=== PATIENT | male | born 1975 | race Asian ===

== ENCOUNTER 2017-08-17 13:05 | Outpatient (CLI) | payer OTHER | END 2017-08-17 13:06 | disposition home or self-care (01) | LOC: DI 13:05 | PROVIDERS: ATTEND General Practice | DX: R93.8 Abnormal findings on diagnostic imaging of other specified body structures (principal) | CPT/HCPCS: 93306 ==

== ENCOUNTER 2017-08-30 15:06 | Outpatient (CLI) | payer OTHER | END 2017-08-30 15:07 | disposition home or self-care (01) | LOC: SC 15:06 | PROVIDERS: ATTEND Internal Medicine Pulmonary Disease | DX: G47.33 Obstructive sleep apnea (adult) (pediatric) (principal) | CPT/HCPCS: 99203; 99212 ==

== ENCOUNTER 2019-02-27 09:07 | Outpatient (CLI) | payer OTHER ==
[2019-02-27 10:24] VITALS: BP 130/80
--- NOTE | 2019-02-27 10:24 | SLEEP CARE CONSULTATION ---
Information from patient questionnaire entered by Polly Buchanan. I have reviewed and concur with the information entered by Polly Buchanan. This document represents the service I personally performed and the decisions made by me, Rakel Yeung, RN, MSN, [employer]. History of Present Illness Previous diagnosis: Severe, Obstructive Sleep Apnea-Hypopnea Syndrome AHI: 46.5 Reason for follow up: annual Equipment type: CPAP Equipment obtained from: [employer] (having difficulty getting supplies) Mask style: Full face Mask brand: Resmed (AirFit F20) Backup mask available: No (Keep current mask when replaced for a spare) Last cushion change: 4 months ago Prior sleep studies: Yes CPAP Compliance Data - Data Reviewed with Patient Average duration of nightly device use: 6.75 Compliance rate %: 98 (180 days) Current pressure setting (cmH2O): 5-12 Average residual AHI: 3.0 Average large leak: Zero Subjective Missed days of use due to: reports: travel (forgot ) Patient concerns: reports: mask discomfort (from old mask). denies: aerophagia, air blowing in eyes, mask leak noise, condensation in mask/hose, nasal congestion, dry mouth, nose, throat, epistaxis Observed to snore while using device: Yes (intermittently ) Current pressure setting perceived as: comfortable On therapy, patient: reports: sleeping better, awakening more refreshed, being more awake and alert during the day, more rested overall. denies: drowsiness while driving Initial [place] Sleepiness Scale score: 13 Current [place] Sleepiness Scale score: 17 (extra hours at work recently) Allergies and Home Medications Known drug allergies: No Home medication list reviewed: Yes Allergy and home medication list: Hydrochlorothiazide 25mg tab one daily Ranitidine 150mg tab one daily meloxicam 7.5 mg prn Lipitor 20mg one daily Review of Systems Review of systems same as previous: Yes Physical Exam Blood Pressure: 130/80 Cuff size: long Heart Rate: 64 O2 Saturation: 98 Height: 5 ft 9.25 in Weight: 231 lb 12.8 oz Body Mass Index: 34.0 BMI Classification: Obesity Class 1 Impression and Plan 1. Obstructive Sleep Apnea-Hypopnea Syndrome, severe, with good treatment compliance and good apnea control. On CPAP therapy, the patient has better sleep quality and is more rested overall. For supply concerns, I informed him that [facility] is no longer in contract with his insurance so I will have my claims coordinator inform him of his options. Since he is a [employer] company would be best. I will make a DWO prescription. He was also shown how to adjust humidity and heated hose on a sample device for upcoming winter weather. Res Med hand out given. To reduce snoring, I will increase his autoCPAP range [id number]. He is to contact me if the pressure does not resolve snore or is uncomfortable so can be adjusted. He has also gained weight which can apnea risk , CPAP pressure requirements and overall health risks. Thus he is advised to lose weight. He is to be aware of portion control and health content ( whole foods ) and reducing refined foods. If needs further assistance, to contact his PCP for a diet consult. The [place] to reduce health risks is to reduce central obesity. For his concerns about exercise guidelines due to enlarged heart as he works out in a gym, he is to contact his plant operator helper. Patient agreed with plan. Patient's apnea severity and rationale for treatment to reduce apnea, improve sleep quality and reduce cardiovascular and cerebrovascular events was reviewed. I also reviewed the benefit of consistent device use of CPAP for hypertension. * * Change CPAP pressure to 10-14 cmH2O * Notify me if snoring with mask or feeling that the pressure is too much or too little * Transfer to new DME. * Attempt to lose weight * Contact plant operator helper re exercise guidelines. * Return for follow up in 1 year, or sooner if concerns arise I spent 100% of this 35 minute visit face to face with the patient with greater than 50% of this was spent time counseling the patient and coordination of care.
== END 2019-02-27 09:08 | disposition home or self-care (01) ==
LOC: SC 09:07
PROVIDERS: ATTEND Nurse Practitioner Family
DX: G47.33 Obstructive sleep apnea (adult) (pediatric) (principal); E66.9 Obesity, unspecified; Z68.34 Body mass index [BMI] 34.0-34.9, adult
CPT/HCPCS: 99212; 99214

== ENCOUNTER 2020-01-25 14:48 | Outpatient (CLI) | payer OTHER ==
--- NOTE | 2020-01-25 15:20 | SLEEP CARE CONSULTATION ---
Information from patient questionnaire entered by Riccardo Cheema. I have reviewed and concur with the information entered by Riccardo Cheema. This document represents the service I personally performed and the decisions made by , Selene Montes ARNP. History of Present Illness Service Date and Time: 01/25/2020 1448 Previous diagnosis: Severe, Obstructive Sleep Apnea-Hypopnea Syndrome AHI: 46.5 Reason for follow up: annual (Last seen 02/2019 - machine or pressure issues) Equipment type: CPAP Equipment obtained from: [employer] (getting supplies as needed) Mask style: Full face Mask brand: Resmed Backup mask available: Yes (old mask) Last cushion change: 2 weeks ago Prior sleep studies: Yes Year and Where: 2015 [facility] Sleep Lab Type of Sleep Study: Polysomnography HPI additional information: MAEVE DIMAS was diagnosed to have severe, AHI 46.5, obstructive sleep apnea- hypopnea syndrome and returned today for CPAP therapy last seen 2018, patient has machine or pressure issues follow-up. Sleep Study - Results Prior sleep studies: Yes CPAP Compliance Data - Data Reviewed with Patient Average duration of nightly device use: 7 h 34 min Compliance rate %: 99 Current pressure setting (cmH2O): 5-12 Average residual AHI: 2.6 Central apnea: 0.1 Obstructive apnea: 1.6 Subjective Missed days of use due to: reports: other (power outage) Patient concerns: reports: air blowing in eyes (due to wearing of mask, changing mask helps), other (would like to have a battery back up for his machine). denies: aerophagia, mask discomfort, mask leak noise, condensation in mask/hose, nasal congestion, dry mouth, nose, throat, epistaxis Observed to snore while using device: No Current pressure setting perceived as: too low On therapy, patient: reports: sleeping better, awakening more refreshed, being more awake and alert during the day, more rested overall. denies: drowsiness while driving Initial [place] Sleepiness Scale score: 13 (in 2018) Current [place] Sleepiness Scale score: 14 Allergies and Home Medications Known drug allergies: No (NKDA) Home medication list reviewed: Yes Allergy and home medication list: HCTZ Atorvastatin Prilosec Ibuprofen, as needed fish oil multivitamins Review of Systems Review of systems same as previous: Yes (no changes) Physical Exam Heart Rate: 68 O2 Saturation: 97 Height: 5 ft 9.25 in Weight: 238 lb Body Mass Index: 34.9 BMI Classification: Obese Impression and Plan 1. Obstructive Sleep Apnea-Hypopnea Syndrome, severe, with good treatment compliance and good apnea control. On CPAP therapy, the patient has better sleep quality and is more rested overall. He was wondering about when he would be eligible for a machine upgrade. His last machine update was in 2018 so he will be eligible in about 3 years unless his machine malfunctions or stops working. He does not feel like the pressure is enough and recently has had more headaches in the morning. I will increase his pressure to 10-14 cm H2O and have him follow up in a month or so to see if these issue have improved/resolve. He voiced understanding. Patient's apnea severity and rationale for treatment to reduce apnea, improve sleep quality and reduce cardiovascular and cerebrovascular events was reviewed. I also reviewed the benefit of consistent device use of CPAP for his hypertension. * Continue auto CPAP pressure at 10-14 cmH2O * Notify me if snoring with mask or feeling that the pressure is too much or too little * Attempt to lose weight * Call this office if any problems using CPAP * Return for follow up in 1-2 months, or sooner if concerns arise Counseling Topics: Weight loss health impact Visit Type: In Office Time Spent with Patient (minutes): 17 Provider Statement: I spent 100% of the Face to Face Visit with the patient with greater than 50% spent counseling the patient and coordination of care.
== END 2020-01-25 14:49 | disposition home or self-care (01) ==
LOC: SC 14:48
PROVIDERS: ATTEND Nurse Practitioner Family
DX: G47.33 Obstructive sleep apnea (adult) (pediatric) (principal); E66.9 Obesity, unspecified; Z68.34 Body mass index [BMI] 34.0-34.9, adult
CPT/HCPCS: 99212; 99213

== ENCOUNTER 2020-04-04 10:28 | Outpatient (CLI) | payer OTHER ==
--- NOTE | 2020-04-04 10:56 | SLEEP CARE CONSULTATION ---
Information from patient questionnaire entered by Ploly Buchanan. I have reviewed and concur with the information entered by Polly Buchanan. This document represents the service I personally performed and the decisions made by , Selene Montes ARNP. History of Present Illness Service Date and Time: 04/04/2020 1028 Previous diagnosis: Severe, Obstructive Sleep Apnea-Hypopnea Syndrome AHI: 46.5 (in 2016) Reason for follow up: other (2 month with pressure change) Equipment type: CPAP Equipment obtained from: [employer] (getting supplies as needed) Mask style: Full face Mask brand: [employer] Backup mask available: Yes (old mask) Last cushion change: 1 week ago Prior sleep studies: Yes Year and Where: 2016 [facility] Sleep Lab Type of Sleep Study: Polysomnography HPI additional information: MAEVE DIMAS was diagnosed to have severe, AHI 46.5, obstructive sleep apnea- hypopnea syndrome and returned today for CPAP therapy 2 month pressure change follow-up. CPAP Compliance Data - Data Reviewed with Patient Average duration of nightly device use: 7 hr 28 min Compliance rate %: 100 (60 days) Current pressure setting (cmH2O): 10-14 Average residual AHI: 2.3 Subjective Missed days of use due to: reports: travel Patient concerns: reports: mask discomfort (it is okay but may be too small; will call to try a large instead of medium). denies: aerophagia, air blowing in eyes, mask leak noise, condensation in mask/hose, nasal congestion, dry mouth, nose, throat, epistaxis, other Observed to snore while using device: No Current pressure setting perceived as: comfortable On therapy, patient: reports: sleeping better, awakening more refreshed, being more awake and alert during the day, more rested overall. denies: drowsiness while driving Initial [place] Sleepiness Scale score: 13 (in 2018) Current [place] Sleepiness Scale score: 13 Allergies and Home Medications Drug allergies reviewed: Yes (NKDA) Home medication list reviewed: Yes (no changes) Review of Systems Review of systems same as previous: Yes (no changes) Physical Exam Heart Rate: 65 O2 Saturation: 98 Height: 5 ft 9.25 in Weight: 226 lb Body Mass Index: 33.1 BMI Classification: Obese Impression and Plan 1. Obstructive Sleep Apnea-Hypopnea Syndrome, severe, with good treatment compliance and good apnea control. On CPAP therapy, the patient has better sleep quality and is more rested overall. He feels the mask may not be fitting well, that it may be a little small. I advised him to request the next larger size of his full face mask from the DME to see if that fits better. He voiced understanding and agreement to call them with this request. He is going to retire from duty and his insurance may be changing. I advised that he call and update us with this information once this happens and he voiced agreement. Patient's apnea severity and rationale for treatment to reduce apnea, improve sleep quality and reduce cardiovascular and cerebrovascular events was tierney carr. I also reviewed the benefit of consistent device use of CPAP for hypertension. * Continue autoCPAP pressure at 10-14 cmH2O * Notify me if snoring with mask or feeling that the pressure is too much or too little * Attempt to lose weight * Call this office if any problems using CPAP * Return for follow up in 1 year, or sooner if concerns arise Counseling Topics: Spare mask, Weight loss health impact Visit Type: In Office Time Spent with Patient (minutes): 17 Provider Statement: I spent 100% of the Face to Face Visit with the patient with greater than 50% spent counseling the patient and coordination of care.
== END 2020-04-04 10:29 | disposition home or self-care (01) ==
LOC: SC 10:28
PROVIDERS: ATTEND Nurse Practitioner Family
DX: G47.33 Obstructive sleep apnea (adult) (pediatric) (principal); E66.9 Obesity, unspecified; Z68.33 Body mass index [BMI] 33.0-33.9, adult
CPT/HCPCS: 99212; 99213

== ENCOUNTER 2022-04-17 14:17 | Outpatient (CLI) | payer OTHER ==
--- NOTE | 2022-04-17 15:05 | SLEEP CARE CONSULTATION ---
Information from patient questionnaire entered by Lora Frazier MA. I have reviewed and concur with the information entered by Lora Frazier MA. This document represents the service I personally performed and the decisions made by , Selene Montes ARNP. History of Present Illness Service Date and Time: 04/17/2022 1417 Previous diagnosis: Severe, Obstructive Sleep Apnea-Hypopnea Syndrome AHI: 46.5 (in 2015) Reason for follow up: annual (last seen 03/2020) Equipment type: CPAP (Resmed Airsense 10) Equipment obtained from: [employer] (getting supplies as needed) Mask style: Full face Mask brand: Resmed (Airfit) Backup mask available: Yes (other mask) Last cushion change: 4-5 weeks Prior sleep studies: Yes Year and Where: 2015 - [facility] Sleep Lab Type of Sleep Study: Polysomnography HPI additional information: MAEVE DIMAS was diagnosed to have severe, AHI 46.5, obstructive sleep apnea- hypopnea syndrome and returned today for CPAP therapy annual follow-up. Sleep Study - Results Type of Sleep Study: Polysomnography Prior sleep studies: Yes Year and Where: 2015 - [facility] Sleep Lab CPAP Compliance Data - Data Reviewed with Patient Average duration of nightly device use: 6 hours 29 minutes Compliance rate %: 99 (179/180 days used) Current pressure setting (cmH2O): 10-14 Average residual AHI: 2.3 Central apnea: 0.1 Obstructive apnea: 1.2 Average large leak: 1.1 lpm Subjective Missed days of use due to: reports: travel Patient concerns: denies: aerophagia, mask discomfort, air blowing in eyes, mask leak noise, condensation in mask/hose, nasal congestion, dry mouth, nose, throat, epistaxis Observed to snore while using device: Yes (occasional) Current pressure setting perceived as: comfortable On therapy, patient: reports: sleeping better, awakening more refreshed, being more awake and alert during the day, more rested overall. denies: drowsiness while driving Initial [place] Sleepiness Scale score: 13 (in 2018) Current [place] Sleepiness Scale score: 9 Allergies and Home Medications Drug allergies reviewed: Yes (NKDA) Home medication list reviewed: Yes (no changes) Review of Systems Review of systems same as previous: Yes (no changes) Physical Exam Vital signs obtained and entered by: RAYMOND WHITFIELD Blood Pressure: 140/92 (PT IS C/O HEADACHE. STATES HE HAS NOT TAKEN B/P M EDICATION YET.) Cuff size: regular Heart Rate: 76 O2 Saturation: 96 Height: 5 ft 9.25 in Weight: 238 lb 2 oz Body Mass Index: 34.9 BMI Classification: Obese Impression and Plan 1. Obstructive Sleep Apnea-Hypopnea Syndrome, severe, with good treatment compliance and good apnea control. On CPAP therapy, the patient has better sleep quality and is more rested overall. Patient has significant improvement of their sleep apnea and are satisfied with current CPAP therapy. Patient denies problems with oral dryness, nasal congestion, epistaxis, skin irritation or aerophagia. Patient's apnea severity and rationale for treatment to reduce apnea, improve sleep quality and reduce cardiovascular and cerebrovascular events was reviewed. I also reviewed the benefit of consistent device use of CPAP for hypertension. 2. Obesity, unspecified. Currently patients BMI is 34.9. Obesity increases the risk of apnea, CPAP pressure requirements and overall health risks especially cardiovascular and diabetes. Thus patient is advised to continue to try to lose weight. * Continue auto CPAP pressure at 10-14 cmH2O * Update supplies * Notify me if snoring with mask or feeling that the pressure is too much or too little * Attempt to lose weight * Call this office if any problems using CPAP * Return for follow up in 1 year, or sooner if concerns arise Counseling Topics: Weight loss health impact Visit Type: In Office Time Spent with Patient (minutes): 20 Provider Statement: I spent 100% of the Face to Face Visit with the patient with greater than 50% spent counseling the patient and coordination of care.
[2022-04-17 15:11] VITALS: BP 140/92
== END 2022-04-17 14:18 | disposition home or self-care (01) ==
LOC: SC 14:17
PROVIDERS: ATTEND Nurse Practitioner Family
DX: G47.33 Obstructive sleep apnea (adult) (pediatric) (principal); E66.9 Obesity, unspecified; Z68.34 Body mass index [BMI] 34.0-34.9, adult
CPT/HCPCS: 99212; 99213

== ENCOUNTER 2023-07-07 08:52 | Outpatient (CLI) | payer OTHER ==
--- NOTE | 2023-07-07 09:23 | Sleep Patient Instructions ---
Sleep Center Visit Summary - Patient Visit Information Reason for Visit: Annual Followup - Patient Instructions Additional Instructions: You will continue with CPAP therapy with pressure set at 10-14 cmH2O. A supply prescription will be updated with your DME. I have added to update your CPAP and for a mask refitting. Please call once you have your new CPAP to set up compliance follow up. We encourage you to continue to try to lose weight. Please follow up with the sleep care office one month after obtaining new CPAP. - Clinic Information Contact: [facility] [address] [place] [address] [email or web address] T: [phone]
--- NOTE | 2023-07-07 09:26 | SLEEP CARE CONSULTATION ---
Information from patient questionnaire entered by Nazanin Joshi. I have reviewed and concur with the information entered by Nazanin Joshi. This document represents the service I personally performed and the decisions made by me, Selene Montes ARNP. History of Present Illness Service Date and Time: 07/07/2023 0852 Previous diagnosis: Severe, Obstructive Sleep Apnea-Hypopnea Syndrome AHI: 46.5 (in 2015) Reason for follow up: annual (LAST SEEN 03/2022) Equipment type: CPAP (Resmed Airsense 10; s/u 12/2017, MACHINE NEEDED) Equipment obtained from: Other ([employer] [facility]; getting supplies) Mask style: Full face Mask brand: Resmed (AirTouch F20, medium cushion) Backup mask available: Yes Last cushion change: couple weeks Prior sleep studies: Yes Year and Where: [address] [place] [address] Sleep Lab Type of Sleep Study: Polysomnography HPI additional information: MAEVE DIMAS was diagnosed to have severe, AHI 46.5, obstructive sleep apnea- hypopnea syndrome and returned today for CPAP therapy annual follow-up. Sleep Study - Results Type of Sleep Study: Polysomnography Prior sleep studies: Yes Year and Where: [address] [place] [address] Sleep Lab CPAP Compliance Data - Data Reviewed with Patient Average duration of nightly device use: 6 hours 26 minutes Compliance rate %: 99 (01/08/23-07/06/23; 180/180 days used) Current pressure setting (cmH2O): 10-14 Average residual AHI: 2 Central apnea: 0 Obstructive apnea: 1 Hypopnea: 1 Average large leak: 2.1 L/min Subjective Missed days of use due to: reports: travel Patient concerns: reports: air blowing in eyes. denies: aerophagia, mask discomfort, mask leak noise, condensation in mask/hose, nasal congestion, dry mouth, nose, throat, epistaxis Observed to snore while using device: Yes (random, not every night) Current pressure setting perceived as: comfortable On therapy, patient: reports: sleeping better, awakening more refreshed, being more awake and alert during the day, more rested overall. denies: drowsiness while driving Initial [place] Sleepiness Scale score: 13 (in 2018) Current [place] Sleepiness Scale score: 12 (07/07/23) Allergies and Home Medications Known drug allergies: No Drug allergies reviewed: Yes Home medication list reviewed: Yes (no changes) Allergy and home medication list: Allergies No Known Drug Allergies Allergy (Verified 07/05/23 09:38) Review of Systems Review of systems same as previous: Yes (NO CHANGE) Physical Exam Vital signs obtained and entered by: NAZANIN Tavares MA Blood Pressure: 165/104 (RIGHT ARM) Cuff size: regular Heart Rate: 66 O2 Saturation: 99 Height: 5 ft 9 in Weight: 240 lb 9.6 oz Body Mass Index: 35.5 BMI Classification: Obese Impression and Plan 1. Obstructive Sleep Apnea-Hypopnea Syndrome, severe, with good treatment compliance and good apnea control. On CPAP therapy, the patient has better sleep quality and is more rested overall. His ResMed 10 was last updated in 2018. The patients CPAP is over 5 years old and of reasonable use. Thus, the CPAP will be updated. He would also like to try a different full face mask. A DWO prescription will be made for new CPAP and a mask refitting for full face mask. Compliance guidelines for new device and follow up discussed. Patient's apnea se verity and rationale for treatment to reduce apnea, improve sleep quality and reduce cardiovascular and cerebrovascular events was reviewed. I also reviewed the benefit of consistent device use of CPAP for hypertension. 2. Obesity, unspecified. Currently patients BMI is 35.5. Obesity increases the risk of apnea, CPAP pressure requirements and overall health risks especially cardiovascular and diabetes. Thus patient is advised to lose weight. 3. Elevated blood pressure in patient with hypertension. His initial pressure was 165/104 this morning. He says he has not taken his blood pressure m edications and had some caffeine also. He says he will take him medication as soon as he can after this appointment. He denies feeling unwell today. * Continue auto CPAP pressure at 10-14 cmH2O * Mask refitting for full face mask * Update machine * Update supply prescription * Notify me if snoring with mask or feeling that the pressure is too much or too little * Attempt to lose weight * Call this office if any problems using CPAP * Return for follow up one month after obtaining new CPAP, or sooner if concerns arise Counseling Topics: Spare mask, Weight loss health impact Prescriptions: Auto CPAP, Device supplies Follow up with Sleep Care in: other (compliance followup) Visit Type: In Office Time Spent with Patient (minutes): 24 Provider Statement: I spent 100% of the Face to Face Visit with the patient with greater than 50% spent counseling the patient and coordination of care.
[2023-07-07 09:34] VITALS: BP 165/104; O2SAT 99
== END 2023-07-07 08:53 | disposition home or self-care (01) ==
LOC: SC 08:52
PROVIDERS: ATTEND Nurse Practitioner Family
DX: G47.33 Obstructive sleep apnea (adult) (pediatric) (principal); E66.9 Obesity, unspecified; Z68.35 Body mass index [BMI] 35.0-35.9, adult; I10 Essential (primary) hypertension
CPT/HCPCS: 99212; 99213